=== PATIENT | female | born 1950 | race Caucasian/White ===

== ENCOUNTER 2016-05-15 08:16 | Day surgery (SDC) | payer OTHER ==
[~2016-05-15] VITALS: Ht 154.9 cm; Wt 67.0 kg
[2016-05-15] VITALS (26 sets, daily range): BP systolic 104–139; BP diastolic 55–74; PULSE 64–85; RESP 11–17; Ht 154.9 cm; Wt 67.0 kg
[~2016-05-15 08:16] MED LIST: MULTI PO
[2016-05-15] MEDS ORDERED: SOD CHLORIDE 0.9% 1,000 ML IV SCH (09:00)
[2016-05-15] MEDS ORDERED: CEFAZOLIN 1 GM/50 ML (PMX) 50 ML IVPB ONE ×2 (09:00→11:01)
[2016-05-15] MEDS ORDERED: POLYMYXIN/BACITRACIN 1L IRRIG IRR ONE (09:00)
[2016-05-15] MEDS ORDERED: LIDOCAINE 1%/EPI (MDV) 20 ML INJ ONE (11:02)
[2016-05-15] MEDS ORDERED: HEPARIN 1000 UNITS/ML 10 ML INJ ONE (11:02)
[2016-05-15] MEDS ORDERED: MIDAZOLAM 1 MG/ML 2 ML INJ ONE (11:02)
[2016-05-15] MEDS ORDERED: FENTAnyl 50 MCG/ML VIAL ONE (11:02)
[2016-05-15] MEDS ORDERED: SOD CHLORIDE 0.9% 500 ML ONE ×2 (11:02→14:07)
--- NOTE | 2016-05-15 12:14 | RADRPT ---
PROCEDURE: FLUOROSCOPIC AND ULTRASONOGRAPHIC-GUIDED PLACEMENT OF RIGHT CHEST PORT. CLINICAL INDICATION: History of left breast cancer. Venous access for chemotherapy. TECHNIQUE: INTRAPROCEDURE MEDICATIONS: PB antibiotic solution 40 cc applied topically. 1 gram Ancef intravenous ly, intra-op. IV Versed and Fentanyl per protocol. Informed consent was obtained. The procedure, risks, benefits, complications and alternatives were explained to the patient. Risks including bleeding, infection, and pneumothorax were explained. The patient understood and was willing to proceed. A procedural pause was performed. The patient's name, date of , and procedure to be performed w ere verified. The central line was inserted with all elements of maximal sterile barrier technique. All of the fol lowing were used: head covering, facial mask, sterile gown, sterile gloves, a large sterile sheet, h and hygiene, and 2% chlorhexidine for cutaneous antisepsis. The right neck and anterior/superior chest wall were prepped and draped in usual sterile fashion. Limited sonography of the right neck was then performed. Noted is a patent right internal jugular ve in. Following the local injection of 1% lidocaine, the right internal jugular vein was punctured under s onographic guidance with a 20-gauge needle through which a 0.018 inch floppy tip guidewire was advan krystal into the superior vena cava with fluoroscopic guidance. The tract was dilated to 5 [place] and the wire was then replaced with a 0.035 in Amplatz guidewire. Serial dilatation was then performed and a 7 [place] peel away sheath was introduced. A site just inferior to the clavicle in the superior anterior right chest wall was localized. One pe rcent lidocaine was used as local anesthesia. A transverse 2.5 cm incision was made utilizing a 15 b lade scalpel. Utilizing blunt dissection a subcutaneous pocket was created inferior to the incision. The cavity was flushed with approximately 40 cc of PB antibiotic solution. The catheter was tunneled underneath the skin from the newly created pocket to the puncture site in the neck. The central line catheter was pulled through the tract. The catheter was then advanced thr ough the sheath until the tip was positioned in the right atrium. The peel-away sheath was removed. The catheter was flushed and clamped. The 6.6 [place] catheter was then connected to the [employer] power port. The port was then placed into the pocket. Prior to closing the instrument and sponge count was verified and was correct. The subcutaneous tissue was closed with 3-0 Vicryl interrupted suture. The skin at the site of the pock et and in the neck was closed with 4-0 Vicryl suture in a running subcuticular technique. The port w as flushed with 1500 units of heparin in 1.5 cc utilizing a Corrigan needle. The needle was removed. A dressing was applied. The patient tolerated procedure well. COMPARISON: None. FINDINGS: Ultrasound images were recorded and stored in the patient's medical record. Final radiographic images demonstrate the tip of the catheter in the upper right atrium. A total of 0.3 minutes of fluoroscopy time was used. The ultrasound images demonstrate the needle entering th e internal jugular vein. IMPRESSION: 1. Successful ultrasonographic and fluoroscopic guided placement of right chest power port. RPTAT: QQ .Emerson Guthrie MD, MD Date Time Electronically viewed and signed by .Emerson Guthrie MD, on 05/15/2016 12:13 .R/
[2016-05-15] MEDS ORDERED: HYDROCODONE/APAP (5/325) TAB PO PRN (12:30)
--- NOTE | 2016-05-15 15:12 | RADRPT ---
PROCEDURE: Ultrasound guidance for placement of needle in right internal jugular vein. CLINICAL INDICATION: Venous access. TECHNIQUE: Prior to the procedure, informed consent was obtained. Risks including bleeding, infection, and pneu mothorax were explained to the patient. The patient understood and was willing to proceed. A procedu ral pause was performed. The patient's name, date of , and procedure to be performed were verif ied. The central line was inserted with all elements of maximal sterile barrier technique. All of th e following were used: head covering, facial mask, sterile gown, sterile gloves, a large sterile she et, hand hygiene, and 2% chlorhexidine for cutaneous antisepsis. The right neck and anterior/super ior chest wall was prepped and draped in usual sterile fashion. Limited sonography of the right neck was then performed. Noted is a patent right internal jugular ve in. Ultrasound images were recorded and stored in the patient's medical record. Following the local injection of Xylocaine, the right internal jugular vein was punctured under sono graphic guidance with a 20-gauge needle through which a 0.018 inch floppy tip guidewire was advanced into the superior vena cava. The patient tolerated the procedure well. The remainder of the proce dure was performed and dictated under separate cover. COMPARISON: None. FINDINGS: The ultrasound images demonstrate a patent right internal jugular vein. The subsequent images demon strate the needle entering the right internal jugular vein. IMPRESSION: 1. Ultrasound guidance for a needle placement in right internal jugular vein. RPTAT: QQ .Emerson Guthrie MD, Date Time Electronically viewed and signed by .Emerson Guthrie MD, on 05/15/2016 15:12 .R/
== END 2016-05-15 15:00 | disposition home or self-care (01) ==
LOC: SDS 08:16
PROVIDERS: ATTEND Internal Medicine Hematology & Oncology
DX: C50.912 Malignant neoplasm of unspecified site of left female breast (principal)
CPT/HCPCS: 36561; 76942; C1788; J0690; J1644; J2250; J3010; J7040; Z7610

== ENCOUNTER 2018-10-13 14:14 | Day surgery (SDC) | payer OTHER ==
[~2018-10-13] VITALS: Ht 154.9 cm; Wt 63.6 kg
[~2018-10-13 14:14] MED LIST changes: +FISH OIL; +LETROZOLE; -MULTI PO; +SIMVASTATIN; +SUPPLEMENTS; +VITAMIN D3
[2018-10-13 14:50] VITALS: Ht 154.9 cm; Wt 63.6 kg
[2018-10-13 15:13] VITALS: BP 147/67; PULSE 63; RESP 15
[2018-10-13] MEDS ORDERED: MIDAZOLAM 1 MG/ML 2 ML INJ ONE ×2 (17:01)
[2018-10-13] MEDS ORDERED: FENTAnyl 50 MCG/ML VIAL ONE (17:02)
[2018-10-13 17:22] VITALS: BP 132/66; PULSE 64; RESP 22
== END 2018-10-13 17:37 | disposition home or self-care (01) ==
LOC: GIL 14:14
PROVIDERS: ATTEND Internal Medicine
DX: Z12.11 Encounter for screening for malignant neoplasm of colon (principal); D12.0 Benign neoplasm of cecum; I10 Essential (primary) hypertension; E78.5 Hyperlipidemia, unspecified; M19.90 Unspecified osteoarthritis, unspecified site; Z85.3 Personal history of malignant neoplasm of breast; Z92.3 Personal history of irradiation
CPT/HCPCS: 45380; 88305; J2250; J3010; Z7610

== ENCOUNTER 2018-11-21 08:46 | Day surgery (SDC) | payer OTHER ==
[~2018-11-21] VITALS: Ht 154.9 cm; Wt 64.7 kg
[2018-11-21] VITALS (12 sets, daily range): BP systolic 115–133; BP diastolic 35–86; PULSE 62–70; RESP 12–23; Ht 154.9 cm; Wt 64.7 kg
[~2018-11-21 08:46] MED LIST changes: +CEFAZOLIN 1 GM/50 ML (PMX) 50 ML IVPB ONE; +FENTAnyl 50 MCG/ML VIAL ONE; +LETR2.5T ORAL; +MIDAZOLAM 1 MG/ML 2 ML INJ ONE; +SIMV10TA2 ORAL; +SOD CHLORIDE 0.9% 1,000 ML IV SCH
[2018-11-21] MEDS ORDERED: LIDOCAINE 1% (MPF) 30 ML INJ ONE (10:21)
[2018-11-21] MEDS ORDERED: BUPIVACAINE 0.5%/EPI (SDV) 10 ML INJ ONE (10:21)
[2018-11-21] MEDS ORDERED: PROPOFOL 20 ML ONE (10:33)
[2018-11-21] MEDS ORDERED: LIDOCAINE 2% (SDV) 5 ML INJ ONE (10:33)
[2018-11-21] MEDS ORDERED: CEFAZOLIN 1 GM INJ ONE (10:33)
[2018-11-21] MEDS ORDERED: hydrALAzine 20 MG INJ IV PRN (11:00)
[2018-11-21] MEDS ORDERED: LABETALOL HCL 20MG INJ IV PRN (11:00)
[2018-11-21] MEDS ORDERED: OXYCODONE/ACETAMINOPHEN (5/325) TAB PO PRN ×2 (11:00)
[2018-11-21] MEDS ORDERED: DIPHENHYDRAMINE 50 MG INJ IV PRN (11:00)
[2018-11-21] MEDS ORDERED: HYDROmorphONE 1 MG/5 ML IV SYRINGE IV PRN ×3 (11:00)
[2018-11-21] MEDS ORDERED: IPRATROPIUM (NEB) 0.5 MG/2.5 ML AMP HHN PRN (11:00)
[2018-11-21] MEDS ORDERED: FENTAnyl 50 MCG/ML VIAL IV PRN ×3 (11:00)
[2018-11-21] MEDS ORDERED: MEPERIDINE 25 MG INJ IV PRN (11:00)
[2018-11-21] MEDS ORDERED: ALBUTEROL 0.083% (NEB) 2.5 MG/3 ML AMP HHN PRN (11:00)
[2018-11-21] MEDS ORDERED: EPHEDrine 25 MG/5 ML SYG IV PRN (11:00)
[2018-11-21] MEDS ORDERED: ONDANSETRON 4 MG INJ IV PRN (11:00)
== END 2018-11-21 12:20 | disposition home or self-care (01) ==
LOC: SDS 08:46
PROVIDERS: ATTEND Surgery Surgical Oncology
DX: Z45.2 Encounter for adjustment and management of vascular access device (principal); Z85.3 Personal history of malignant neoplasm of breast; I10 Essential (primary) hypertension
CPT/HCPCS: 36590; J0690; J2250; J3010; Z7610; 88300